=== PATIENT | female | born 1980 | race Caucasian/White ===

== ENCOUNTER 2017-08-07 23:21 | Inpatient (IN) | payer OTHER ==
[~2017-08-07] VITALS: Ht 160 cm; Wt 190.0 kg
[2017-08-08] MEDS ORDERED: PRENATABS RX T1 EACH PO (00:31)
[2017-08-08] MEDS ORDERED: PNEU16DI2 (00:32)
[2017-08-08] MEDS ORDERED: OMEGA 3 FISH O1 EACH PO (00:32)
[2017-08-08] MEDS ORDERED: CALCI-MIX500 MG PO (00:32)
== END 2017-08-09 18:50 | disposition home or self-care (01) | DRG 782 ==
LOC: LDR 23:21 → OB/GYN 08-10 14:08
PROC: BY4FZZZ Ultrasonography of Third Trimester, Single Fetus (ICD-10-PCS; principal; 2017-08-07)
PROC: 4A1HXCZ Monitoring of Products of Conception, Cardiac Rate, External Approach (ICD-10-PCS; 2017-08-07)
DX: O13.3 Gestational [pregnancy-induced] hypertension without significant proteinuria, third trimester (principal); O47.1 False labor at or after 37 completed weeks of gestation

== ENCOUNTER 2017-08-15 02:55 | Inpatient (IN) | payer OTHER ==
[~2017-08-15] VITALS: Ht 160 cm; Wt 82.6 kg
[~2017-08-15 02:55] MED LIST: CALCI-MIX500 MG PO; OMEGA 3 FISH O1 EACH PO; PNEU16DI2; PRENATABS RX T1 EACH PO
[2017-08-21] MEDS ORDERED: LOSARTAN-HCTZ1 EACH PO (08:53)
[2017-08-21] MEDS ORDERED: KEFLEX500 MG PO (08:53)
== END 2017-08-20 15:12 | DRG 775 ==
LOC: LDR 02:55 → OB/GYN 08-18 03:23
PROC: 10E0XZZ Delivery of Products of Conception, External Approach (ICD-10-PCS; principal; 2017-08-18)
PROC: 0KQM0ZZ Repair Perineum Muscle, Open Approach (ICD-10-PCS; 2017-08-18)
PROC: 4A033R1 Measurement of Arterial Saturation, Peripheral, Percutaneous Approach (ICD-10-PCS; 2017-08-18)
PROC: 4A1HXCZ Monitoring of Products of Conception, Cardiac Rate, External Approach (ICD-10-PCS; 2017-08-18)
DX: O70.1 Second degree perineal laceration during delivery (principal); Z37.0 Single live birth; O13.4 Gestational [pregnancy-induced] hypertension without significant proteinuria, complicating childbirth; Z3A.40 40 weeks gestation of pregnancy

== ENCOUNTER 2017-08-21 03:51 | Emergency (ER) | payer OTHER ==
[~2017-08-21] VITALS: Ht 160 cm; Wt 65.8 kg
[2017-08-21] MEDS ORDERED: KEFLEX500 MG PO (08:53)
[2017-08-21] MEDS ORDERED: LOSARTAN-HCTZ1 EACH PO (08:53)
== END 2017-08-21 09:11 | disposition home or self-care (01) ==
LOC: ER 03:51 → EMR PED 03:53
DX: I10 Essential (primary) hypertension (principal); N39.0 Urinary tract infection, site not specified

== ENCOUNTER 2020-07-30 15:00 | Inpatient (IN) | payer OTHER ==
[~2020-07-30] VITALS: Ht 160 cm; Wt 81.6 kg
[~2020-07-30 15:00] MED LIST changes: +KEFLEX500 MG PO; +LOSARTAN-HCTZ1 EACH PO
[2020-08-11] MEDS ORDERED: CHILDREN'S ASPI81 MG PO (23:22)
[2020-08-11] MEDS ORDERED: PRENATAL TABLE1 EAC1 PO (23:22)
== END 2020-08-15 19:53 | disposition home or self-care (01) | DRG 807 ==
LOC: OB/GYN 08-08 15:00 → LDR 08-11 22:44 → SURG-SUITE 08-11 22:44
PROVIDERS: ADMIT Specialist; ATTEND Specialist
PROC: 10E0XZZ Delivery of Products of Conception, External Approach (ICD-10-PCS; principal; 2020-08-11)
PROC: 0KQM0ZZ Repair Perineum Muscle, Open Approach (ICD-10-PCS; 2020-08-11)
PROC: 4A1HXFZ Monitoring of Products of Conception, Cardiac Rhythm, External Approach (ICD-10-PCS; 2020-08-11)
DX: O70.1 Second degree perineal laceration during delivery (principal); Z37.0 Single live birth; O48.0 Post-term pregnancy; Z3A.40 40 weeks gestation of pregnancy